=== PATIENT | female | born 2000 ===

== ENCOUNTER 2022-05-03 10:22 | Emergency (ER) | payer MEDICAID ==
[~2022-05-03] VITALS: Ht 167.6 cm; Wt 68.0 kg
[2022-05-03 10:33] VITALS: BP 129/95
== END 2022-05-03 15:30 | disposition left against medical advice (07) ==
LOC: ER 10:22
DX: Z53.21 Procedure and treatment not carried out due to patient leaving prior to being seen by health care provider (principal)